=== PATIENT | male | born 1995 | race Asian ===

== ENCOUNTER 2018-02-02 17:34 | Emergency (ER) | payer SELFPAY ==
[2018-02-02] MEDS ORDERED: PEPCID20 MG PO (18:21)
[2018-02-02] MEDS ORDERED: IBUPROFEN400 MG PO (18:21)
== END 2018-02-02 18:35 | disposition home or self-care (01) ==
LOC: FSED 17:34
DX: S93.491A Sprain of other ligament of right ankle, initial encounter (principal); X50.1XXA Overexertion from prolonged static or awkward postures, initial encounter; Y92.008 Other place in unspecified non-institutional (private) residence as the place of occurrence of the external cause
CPT/HCPCS: 99283